=== PATIENT | female | born 1940 | race Caucasian/White ===

== ENCOUNTER 2023-02-26 20:19 | Inpatient (IN) | payer MEDICARE ==
[2023-02-26 22:13] LABS: Basophils # (A) 0.1 k/uL (0-0.2); Basophils % (A) 1 %; Eosinophils # (A) 0.1 k/uL (0-0.7); Eosinophils % (A) 1 %; HCT 47.8 % (34.0-46.0); HGB 15.3 gm/dL (11.4-16.0); Lymphocytes # (A) 1.1 k/uL (1.0-4.8); Lymphocytes % (A) 12 %; MCH 28.5 pg (25.0-35.0); Mean Platelet Volume 8.4; Monocytes # (A) 0.4 k/uL (0-1.0); Monocytes % (A) 4 %; Neutrophils # (A) 7.5 k/uL (1.3-7.7); Neutrophils % (A) 81 %; Platelet Count 208 k/uL (150-450); RBC 5.37 m/uL (3.80-5.40); RDW 13.5 % (11.5-15.5); WBC 9.4 k/uL (3.8-10.6)
[2023-02-26 22:19] LABS: Albumin 4.1 g/dL (3.5-5.0); Calcium 9.4 mg/dL (8.4-10.2); Potassium 4.4 mmol/L (3.5-5.1); Total Bilirubin 0.8 mg/dL (0.2-1.3); Total Protein 7.7 g/dL (6.3-8.2)
[2023-02-26] MEDS ORDERED: SODIUM CHLORIDE 0.9% 500 ML 500 ML IV ONE (22:39)
[2023-02-26 22:57] LABS: INR 2.3 (<1.2); Partial Thromboplastin Time 30.6 sec (22.0-30.0); Prothrombin Time 22.9 sec (9.0-12.0)
--- NOTE | 2023-02-26 23:29 | ED ---
General Adult HPI - General Chief complaint: Dizziness Stated complaint: Dizziness/afib Time Seen by Provider: 02/26/23 22:10 Source: patient, RN notes reviewed, old records reviewed Mode of arrival: ambulatory Limitations: no limitations - History of Present Illness Initial comments: 82-year-old female presenting for evaluation of dizziness and lightheadedness. Patient has had several episodes similar to this in the past and has had significant workup at outside hospitals with no specific diagnosis. Today she had a repeat episode which she describes his dizziness and states that she felt like she might pass out. There is no associated chest pain, no palpitations. No abdominal pain. No focal numbness or weakness. No headache. Symptoms res olved at the time my evaluation. She did have nausea without vomiting. Patient does state she's had increased exertional dyspnea as well as orthopnea. - Related Data Home Medications Medication Instructions Recorded Confirmed Carvedilol [Coreg] 12.5 mg PO BID 08/11/14 08/11/14 Diltiazem Oral [Cardizem] 180 mg PO DAILY 08/11/14 08/11/14 LORazepam [Ativan] 1 mg PO BID 08/11/14 08/11/14 Levothyroxine Sodium [Synthroid] 88 mcg PO DAILY 08/11/14 08/11/14 Warfarin Sodium [Coumadin] 3 mg PO DIRECTED 08/11/14 08/11/14 hydroCHLOROthiazide [Hydrodiuril] 25 mg PO DAILY 08/11/14 08/11/14 Allergies Allergy/AdvReac Type Severity Reaction Status Date / Time No Known Allergies Allergy Verified 08/11/14 00:36 Review of Systems ROS Statement: Those systems with pertinent positive or pertinent negative responses have been documented in the HPI. ROS Other: All systems not noted in ROS Statement are negative. Past Medical History Past Medical History: Atrial Fibrillation, Coronary Artery Disease (CAD), GI Ble ed, Hyperlipidemia, Myocardial Infarction (MT), Thyroid Disorder Additional Past Medical History / Comment(s): 3 cardioversions spread out over 3 years. Last one 2 years ago. Had GI bleed from xaralto before with bloody stools. Stenting of the LAD 3 years ago Last Myocardial Infarction Date:: 2010 History of Any Multi-Drug Resistant Organisms: None Reported Past Surgical History: Heart Catheterization With Stent Additional Past Surgical History / Comment(s): abd tumor removed, nasal bone surgery Additional Past Anesthesia/Blood Transfusion Reaction / Comment(s): Never had a blood transfusion. Date of Last Stent Placement:: 2010 Past Psychological History: No Psychological Hx Reported Smoking Status: Never smoker Past Alcohol Use History: None Reported Past Drug Use History: None Reported - Past Family History Mother Family Medical History: Myocardial Infarction (MT) Father Family Medical History: Cancer Additional Family Medical History / Comment(s): Lung cancer Daughter(s) Family Medical History: Cancer Additional Family Medical History / Comment(s): Kidney General Exam Limitations: no limitations General appearance: alert, in no apparent distress Head exam: Present: atraumatic, normocephalic Eye exam: Present: normal appearance, PERRL ENT exam: Present: normal exam Neck exam: Present: normal inspection. Absent: tenderness, meningismus Respiratory exam: Present: rales. Absent: respiratory distress, wheezes Cardiovascular Exam: Present: regular rate, irregular rhythm GI/Abdominal exam: Present: soft. Absent: distended, tenderness, guarding, rebound Extremities exam: Present: normal inspection, normal capillary refill. Absent: pedal edema Neurological exam: Present: alert, oriented X3, CN II-XII intact. Absent: motor sensory deficit Psychiatric exam: Present: normal affect, normal mood Skin exam: Present: warm, dry, intact. Absent: cyanosis, diaphoretic Course Vital Signs 02/26/23 02/26/23 21:22 22:15 Temperature 97.5 F L Pulse Rate 77 72 Respiratory 18 18 Rate Blood Pressure 178/112 183/123 O2 Sat by Pulse 95 98 Oximetry EKG Findings - EKG Comments: EKG Findings:: EKG: Interpreted by myself, atrial fibrillation, right axis, rate of 84, QRS duration 86, QTC 410, no ST segment elevation Medical Decision Making - Medical Decision Making Was pt. sent in by a medical professional or institution (, PA, INTELLIGENCE ANALYST, urgent care, hospital, or retirement...) When possible be specific @ -No Did you speak to anyone other than the patient for history (EMS, parent, family, police, friend...)? What history was obtained from this source @Patient's daughter Did you review nursing and triage notes (agree or disagree)? Why? @ -I reviewed and agree with nursing and triage notes Were old charts reviewed (outside hosp., previous admission, EMS record, old EKG, old radiological studies, urgent care reports/EKG's, retirement records)? Report findings @ -No old charts were reviewed Differential Diagnosis (chest pain, altered mental status, abdominal pain women, abdominal pain men, vaginal bleeding, weakness, fever, dyspnea, syncope, headache, dizziness, GI bleed, back pain, seizure, CVA, palpatations, mental health, musculoskeletal)? @ Differential Weakness: Hypoglycemia, shock, sepsis, hyponatremia, anemia, infection, MT, ETOH, adverse medicine reaction, overdose, stroke, this is not meant to be an all-inclusive list. EKG interpreted by me (3pts min.). @ -As above X-rays interpreted by me (1pt min.). @Chest x-ray showing pulmonary edema CT interpreted by me (1pt min.). @ -None done U/S interpreted by me (1pt. min.). @ -None done What testing was considered but not performed or refused? (CT, X-rays, U/S, labs)? Why? @ -None What meds were considered but not given or refused? Why? @ -None Did you discuss the management of the patient with other professionals (professionals i.e. , PA, INTELLIGENCE ANALYST, lab, RT, psych nurse, social work lecturer, kettle chipper, te acher, commercial loan officer, case assembler)? Give summary @Patient admitted to [facility] Was smoking cessation discussed for >3mins.? @ -No Was critical care preformed (if so, how long)? @ -No Were there social determinants of health that impacted care today? How? (Homelessness, low income, unemployed, alcoholism, drug addiction, transportation, low edu. Level, literacy, decrease access to med. care, usp, rehab)? @ -No Was there de-escalation of care discussed even if they declined (Discuss DNR or withdrawal of care, Hospice)? DNR status @ -No What co-morbidities impacted this encounter? (DM, HTN, Smoking, COPD, CAD, Cancer, CVA, ARF, Chemo, Hep., AIDS, mental health diagnosis, sleep apnea, morbi d obesity)? @Hypertension Was patient admitted / discharged? Hospital course, mention meds given and route, prescriptions, significant lab abnormalities, going to OR and other pertinent info. @82-year-old female presenting with lightheadedness, and dyspnea. Patient is on Coumadin, INR is therapeutic. She she is in atrial fibrillation with elevated blood pressure. Head CT negative for intracranial hemorrhage or mass effect. Chest x-ray showing CHF which is a new diagnosis for this patient. She does have a mildly elevated BNP, negative troponin. Given IV diuresis and will benefit from echo. She will be admitted to this institution. Echo has been ordered Undiagnosed new problem with uncertain prognosis? @ -No Drug Therapy requiring intensive monitoring for toxicity (Heparin, Nitro, Insulin, Cardizem)? @ -No Were any procedures done? @ -No Diagnosis/symptom? @ -New onset CHF Acute, or Chronic, or Acute on Chronic? @Acute Uncomplicated (without systemic symptoms) or Complicated (systemic symptoms)? @ -Complicated Side effects of treatment? @ -No Exacerbation, Progression, or Severe Exacerbation? @ -No Poses a threat to life or bodily function? How? (Chest pain, USA, MT, pneumonia, PE, COPD, DKA, ARF, appy, cholecystitis, CVA, Diverticulitis, Homicidal, Suicidal, threat to staff... and all critical care pts) @ -Yes, CHF, hypoxia, cardiogenic shock - Lab Data Result diagrams: 02/26/23 21:51 02/26/23 21:51 Lab Results 02/26/23 02/26/23 02/26/23 Range/Units 21:51 21:51 21:51 WBC 9.4 (3.8-10.6) k/uL RBC 5.37 (3.80-5.40) m/uL Hgb 15.3 (11.4-16.0) gm/dL Hct 47.8 H (34.0-46.0) % MCV 89.0 (80.0-100.0) fL MCH 28.5 (25.0-35.0) pg MCHC 32.0 (31.0-37.0) g/dL RDW 13.5 (11.5-15.5) % Plt Count 208 (150-450) k/uL MPV 8.4 Neutrophils % 81 % Lymphocytes % 12 % Monocytes % 4 % Eosinophils % 1 % Basophils % 1 % Neutrophils # 7.5 (1.3-7.7) k/uL Lymphocytes # 1.1 (1.0-4.8) k/uL Monocytes # 0.4 (0-1.0) k/uL Eosinophils # 0.1 (0-0.7) k/uL Basophils # 0.1 (0-0.2) k/uL PT (9.0-12.0) sec INR (<1.2) APTT (22.0-30.0) sec Sodium 135 L (137-145) mmol/L Potassium 4.4 (3.5-5.1) mmol/L Chloride 99 (98-107) mmol/L Carbon Dioxide 27 (22-30) mmol/L Anion Gap 9 mmol/L BUN 15 (7-17) mg/dL Creatinine 0.90 (0.52-1.04) mg/dL Est GFR (CKD-EPI)AfAm 69 (>60 ml/min/1.73 sqM) Est GFR (CKD-EPI)NonAf 60 (>60 ml/min/1.73 sqM) Glucose 126 H (74-99) mg/dL Calcium 9.4 (8.4-10.2) mg/dL Total Bilirubin 0.8 (0.2-1.3) mg/dL AST 25 (14-36) U/L ALT 21 (4-34) U/L Alkaline Phosphatase 64 (38-126) U/L Troponin I <0.012 (0.000-0.034) ng/mL NT-Pro-B Natriuret Pep pg/mL Total Protein 7.7 (6.3-8.2) g/dL Albumin 4.1 (3.5-5.0) g/dL Urine Color Urine Appearance (Clear) Urine pH (5.0-8.0) Ur Specific [place] (1.001-1.035) Urine Protein (Negative) Urine Glucose (UA) (Negative) Urine Ketones (Negative) Urine Blood (Negative) Urine Nitrite (Negative) Urine Bilirubin (Negative) Urine Urobilinogen (<2.0) mg/dL Ur Leukocyte Esterase (Negative) Urine RBC (0-5) /hpf Urine WBC (0-5) /hpf Ur Squamous Epith Cells (0-4) /hpf Urine Bacteria (None) /hpf 02/26/23 02/26/23 02/26/23 Range/Units 21:51 22:36 23:07 WBC (3.8-10.6) k/uL RBC (3.80-5.40) m/uL Hgb (11.4-16.0) gm/dL Hct (34.0-46.0) % MCV (80.0-100.0) fL MCH (25.0-35.0) pg MCHC (31.0-37.0) g/dL RDW (11.5-15.5) % Plt Count (150-450) k/uL MPV Neutrophils % % Lymphocytes % % Monocytes % % Eosinophils % % Basophils % % Neutrophils # (1.3-7.7) k/uL Lymphocytes # (1.0-4.8) k/uL Monocytes # (0-1.0) k/uL Eosinophils # (0-0.7) k/uL Basophils # (0-0.2) k/uL PT 22.9 H (9.0-12.0) sec INR 2.3 H (<1.2) APTT 30.6 H (22.0-30.0) sec Sodium (137-145) mmol/L Potassium (3.5-5.1) mmol/L Chloride (98-107) mmol/L Carbon Dioxide (22-30) mmol/L Anion Gap mmol/L BUN (7-17) mg/dL Creatinine (0.52-1.04) mg/dL Est GFR (CKD-EPI)AfAm (>60 ml/min/1.73 sqM) Est GFR (CKD-EPI)NonAf (>60 ml/min/1.73 sqM) Glucose (74-99) mg/dL Calcium (8.4-10.2) mg/dL Total Bilirubin (0.2-1.3) mg/dL AST (14-36) U/L ALT (4-34) U/L Alkaline Phosphatase (38-126) U/L Troponin I (0.000-0.034) ng/mL NT-Pro-B Natriuret Pep 1380 pg/mL Total Protein (6.3-8.2) g/dL Albumin (3.5-5.0) g/dL Urine Color Colorless Urine Appearance Clear (Clear) Urine pH 7.0 (5.0-8.0) Ur Specific [place] 1.002 (1.001-1.035) Urine Protein Negative (Negative) Urine Glucose (UA) Negative (Negative) Urine Ketones Negative (Negative) Urine Blood Trace H (Negative) Urine Nitrite Negative (Negative) Urine Bilirubin Negative (Negative) Urine Urobilinogen <2.0 (<2.0) mg/dL Ur Leukocyte Esterase Small H (Negative) Urine RBC <1 (0-5) /hpf Urine WBC 9 H (0-5) /hpf Ur Squamous Epith Cells <1 (0-4) /hpf Urine Bacteria Rare H (None) /hpf Disposition Clinical Impression: HTN (hypertension), CHF (congestive heart failure) Disposition: ADMITTED IP TO THIS HOSP Condition: Stable Is patient prescribed a controlled substance at d/c from ED?: No Referrals: Manisha Low MD [Primary Care Provider] - 1-2 days Time of Disposition: 01:31
--- NOTE | 2023-02-26 23:41 | XR ---
EXAMINATION TYPE: XR chest 2V DATE OF EXAM: 02/26/2023 COMPARISON: 08/11/2014 INDICATION: Dizziness TECHNIQUE: Frontal and lateral views of the chest are obtained. FINDINGS: The heart size is enlarged. The pulmonary vasculature is prominent. Diffuse increased lung markings are present. Correlate for mild pulmonary edema and volume overload. IMPRESSION: 1. Clinical consideration for congestive heart failure.
--- NOTE | 2023-02-26 23:41 | CT ---
EXAMINATION TYPE: CT brain wo con DATE OF EXAM: 02/26/2023 COMPARISON: None INDICATION: Dizziness, Afib DLP: 1172.9 mGycm, Automated exposure control for dose reduction was used. CONTRAST: None CT of the brain is performed utilizing 3 mm thick sections through the posterior fossa and 3 mm thick sections through the remaining calvarium. Study is performed within 24 hours of arrival to the hosp ital. No abnormal hyperdensity is present to suggest an acute intracranial hemorrhage. No mass lesion is evident. No acute infarcts are evident. Ventricles and sulci are prominent for the patient age. Paranasal sinuses and mastoid air cells within the [id number] are clear. IMPRESSIONS: 1. Age-related atrophy. 2. No acute intracranial process. Follow-up MRI can be performed as clinically indicated.
[2023-02-27 00:13] LABS: Appearance,Urine Clear (Clear); Bacteria,Urine Rare /hpf; Bilirubin,Urine Negative (Negative); Blood,Urine Trace (Negative); Color,Urine Colorless; Glucose,Urine (UA) Negative (Negative); Ketones,Urine Negative (Negative); Leukocyte Esterase,Urine Small (Negative); Nitrite,Urine Negative (Negative); Protein,Urine Negative (Negative); RBC,Urine <1 /hpf (0-5); Specific Gravity,Urine 1.002 (1.001-1.035); Squamous Epithelial Cell,Urine <1 /hpf (0-4); Urobilinogen,Urine <2.0 mg/dL (<2.0); WBC,Urine 9 /hpf (0-5)
[2023-02-27] MEDS ORDERED: FUROSEMIDE 10 MG/ML 4 ML VIAL IV STA (01:10)
[2023-02-27] MEDS ORDERED: NALOXONE 0.4 MG/ML 1 ML VIAL IV PRN (01:32)
[2023-02-27] MEDS ORDERED: ACETAMINOPHEN TAB 325 MG TAB PO PRN (01:32)
--- NOTE | 2023-02-27 04:06 | P.HPIM ---
History of Present Illness H&P Date: 02/27/23 The patient is an 82-year-old female with a PMH of A. fib on Coumadin, CAD status post stent, hyperlipidemia, and hypothyroidism who presents for dizziness and lightheadedness. The patient reports that she was at home when she developed lightheadedness while watching television at around 4 PM. The symptoms lasted for about 45 minutes, with no associated symptoms and then resolved spontaneously. She reported some nausea without vomiting. The patient denied experiencing chest discomfort, shortness of breath, or diaphoresis diaphoresis. She also denied experiencing focal weakness, numbness, or headache. She does report decreased exercise tolerance over the past few weeks with some lower extremity edema. She reports that she has had multiple episodes like this in the past where she was evaluated at different facility where the workup was unremarkable. In the emergency room, CT brain was unremarkable. Chest x-ray revealed pulmonary edema. EKG revealed A. fib with right axis deviation at 84 beats per minute. Laboratory evaluation was remarkable for INR 2.3, sodium 135, glucose 126, troponin less than 0.4, proBNP 1380, and unremarkable UA. ED documentation reviewed and case discussed with ED provider. Review of systems: Pertinent positives and negatives as discussed in HPI, a complete review of systems was performed and all other systems are negative. Physical examination: Vital signs reviewed General: non toxic, no distress, appears at stated age, normal weight Derm: no unusual rashes/lesions, warm Head: atraumatic, normocephalic, symmetric Eyes: EOMI, no lid lag, anicteric sclera, pupils equal round reactive to light ENT: Nose and ears atraumatic Neck: No cervical lymphadenopathy, trachea midline, supple Mouth: no lip lesion, mucus membranes moist Cardiovascular: S1S2 reg, no murmur, positive dorsalis pedis pulse bilateral, 1+ bilateral lower extremity pitting edema Lungs: CTA bilateral, no rhonchi, no rales, no accessory muscle use Abdominal: soft, nontender to palpation, no guarding Ext: muscle strength 5 out of 5 in all 4 extremities grossly, no gross muscle atrophy, no contractures, Neuro: CN II-XI grossly intact, no gross focal neuro deficits Psych: Alert, oriented, appropriate affect Assessment: Fluid overload, suspect new onset CHF Lightheadedness, unclear etiology Chronic conditions: CAD, Afib, HTN, HLD Imaging: In the emergency room, CT brain was unremarkable. Chest x-ray revealed pulmonary edema. EKG revealed A. fib with right axis deviation at 84 beats per minute Data Review: Laboratory evaluation was remarkable for INR 2.3, sodium 135, glucose 126, troponin less than 0.4, proBNP 1380, and unremarkable UA Plan: Continue Lasix 40 mg IV every 12 hours Cardiac monitoring Cardiology consult Echocardiogram Intake and output, daily weight Fall precautions DVT prophylaxis: Coumadin The patient is admitted with an anticipated greater than 2 midnight stay for evaluation of CHF CODE STATUS: Full Code Discussed with: Patient Anticipated discharge place: Home Past Medical History Past Medical History: Atrial Fibrillation, Coronary Artery Disease (CAD), GI Bleed, Hyperlipidemia, Myocardial Infarction ([place]), Thyroid Disorder Additional Past Medical History / Comment(s): 3 cardioversions spread out over 3 years. Last one 2 years ago. Had GI bleed from xaralto before with bloody stools. Stenting of the LAD 3 years ago Last Myocardial Infarction Date:: 2010 History of Any Multi-Drug Resistant Organisms: None Reported Past Surgical History: Heart Catheterization With Stent Additional Past Surgical History / Comment(s): abd tumor removed, nasal bone surgery Additional Past Anesthesia/Blood Transfusion Reaction / Comment(s): Never had a blood transfusion. Date of Last Stent Placement:: 2010 Past Psychological History: No Psychological Hx Reported Smoking Status: Never smoker Past Alcohol Use History: None Reported Past Drug Use History: None Reported - Past Family History Mother Family Medical History: Myocardial Infarction (ME) Father Family Medical History: Cancer Additional Family Medical History / Comment(s): Lung cancer Daughter(s) Family Medical History: Cancer Additional Family Medical History / Comment(s): Kidney Medications and Allergies Home Medications Medication Instructions Recorded Confirmed Type Carvedilol [Coreg] 12.5 mg PO BID 08/11/14 08/11/14 History Diltiazem Oral [Cardizem] 180 mg PO DAILY 08/11/14 08/11/14 History LORazepam [Ativan] 1 mg PO BID 08/11/14 08/11/14 History Levothyroxine Sodium [Synthroid] 88 mcg PO DAILY 08/11/14 08/11/14 History Warfarin Sodium [Coumadin] 3 mg PO DIRECTED 08/11/14 08/11/14 History hydroCHLOROthiazide [Hydrodiuril] 25 mg PO DAILY 08/11/14 08/11/14 History Allergies Allergy/AdvReac Type Severity Reaction Status Date / Time No Known Allergies Allergy Verified 08/11/14 00:36 Physical Exam Vitals: Vital Signs Temp Pulse Resp BP Pulse Ox 02/27/23 02:36 85 16 161/92 97 02/26/23 22:15 72 18 183/123 98 02/26/23 21:22 97.5 F L 77 18 178/112 95 Intake and Output 02/26/23 02/26/23 02/27/23 14:59 22:59 06:59 Other: Weight 90.718 kg Results CBC & Chem 7: 02/26/23 21:51 02/26/23 21:51 Labs: Abnormal Lab Results - Last 24 Hours (Table) 02/26/23 02/26/23 02/26/23 Range/Units 21:51 21:51 22:36 Hct 47.8 H (34.0-46.0) % PT 22.9 H (9.0-12.0) sec INR 2.3 H (<1.2) APTT 30.6 H (22.0-30.0) sec Sodium 135 L (137-145) mmol/L Glucose 126 H (74-99) mg/dL Urine Blood (Negative) Ur Leukocyte Esterase (Negative) Urine WBC (0-5) /hpf Urine Bacteria (None) /hpf 02/26/23 Range/Units 23:07 Hct (34.0-46.0) % PT (9.0-12.0) sec INR (<1.2) APTT (22.0-30.0) sec Sodium (137-145) mmol/L Glucose (74-99) mg/dL Urine Blood Trace H (Negative) Ur Leukocyte Esterase Small H (Negative) Urine WBC 9 H (0-5) /hpf Urine Bacteria Rare H (None) /hpf
[2023-02-27] MEDS ORDERED: LORazepam 1 MG TAB PO PRN (08:01)
[2023-02-27] MEDS: METOPROLOL TARTRATE 50 MG TAB PO SCH ×2 (08:55→20:16)
[2023-02-27] MEDS: FUROSEMIDE 10 MG/ML 4 ML VIAL IV SCH ×2 (08:56→20:16)
[2023-02-27] MEDS ORDERED: DILTIAZEM CD 120 MG CAP.ER.24H PO SCH (09:00)
[2023-02-27] MEDS ORDERED: DILTIAZEM CD 120 MG CAP.ER.24H PO STA (11:17)
--- NOTE | 2023-02-27 11:19 | P.CRDCN ---
History of Present Illness Consult date: 02/27/23 Consult reason: congestive heart failure History of present illness: History of present illness: This is an 82-year-old female patient follows with a sonar subsystem equipment operator at [place] and in [place]. She has a past medical history of permanent atrial fibrillation on Coumadin, coronary artery disease with previous stenting in the LAD 2 and RCA, hypertension, hypothyroidism, remote history of tobacco use and quit 30 years ago. Patient states that she has had dizziness off and on for a couple weeks she did have her self checked by her sonar subsystem equipment operator in [place] and thought it was related to her atrial fibrillation. Her initial blood pressure was 17 8/112 She was seen by her PCP day before yesterday and was told that she gained 7 pounds and her pulse ox was adequate in the office. She was prescribed an albuterol inhaler and was sent home. She denies having any cough, fever or chills no sputum production. Yesterday, patient had an episode of significant dizziness and felt like she was going to pass out and she decided to come in the hospital for further evaluation. Patient is seen today in the emergency center waiting for a bed on the cardiac stepdown unit. She has been provided 500 mL of IV fluid and Lasix 40 mg once EKG atrial fibrillation at rate of 84 Chest x-ray: CHF CAT scan of the brain reveals age related atrophy. No acute intracranial process. CBC is unremarkable. INR 2.3. Sodium 135, potassium 4.4, BUN 15 creatinine 0.9. Blood sugar 126. Troponin negative 1. ProBNP 1380. Home cardiac medications: Cardizem CD 120 mg daily, levothyroxine 88 g daily, Lopressor 100 mg twice daily, Coumadin 1.5 mg on Friday and Friday and 3 mg on the other days. May 2012 patient had 2 Xience stents in the LAD performed at [facility] 2014 patient had a resolute stent placed in the RCA at [facility] in [place]. Review Of Systems: At the time of my evaluation: Constitutional: No fever, no chills. Reports weakness, fatigue or lethargy. EENT: No headache. No dizziness. Lungs: Reports shortness of breath, cough, no sputum production. No wheezing. Cardiovascular: No chest pain, reports lower extremity edema. No palpitations. No paroxysmal nocturnal dyspnea. Reports orthopnea. Reports lightheadedness or dizziness. Reports one near syncopal episode. Abdominal: No abdominal pain. No nausea, vomiting. No diarrhea. No constipation. No bloody or tarry stools. Genitourinary: No dysuria.. No urinary retention. Musculoskeletal: No myalgias. No muscle weakness, no frequent falls. No back pain. No neck pain. Integumentary: No wounds. No rash. No unusual bruising. Neurologic: No aphasia. No facial droop. No change in mentation. No head injury. No headache. Physical examination: Gen: This is an 82-year-old female. She is resting on ER stretcher and appears to be in no acute distress. No respiratory distress noted. VS: reviewed HEENT: Head is atraumatic, normocephalic. Pupils equal, round. Sclerae is anicteric. NECK: Supple. No JVD. . LUNGS: Diminished with a few crackles in the bases. No intercostal retractions. HEART: Irregular rate and rhythm. ABDOMEN: Soft No tenderness. EXTREMITIES: 1+ pedal edema to the left, trace edema on the right lower extremity. NEUROLOGICAL: Patient is awake, alert and oriented x3. Assessment: Acute heart failure, most likely systolic Dizziness with near syncopal episode Emergent hypertension History of coronary artery disease Rate controlled Permanent atrial fibrillation Hypertension Hypothyroidism Remote history of tobacco use and dependence Plan: Continue patient on Lasix 40 mg IV every 12 hours Monitor I&O, daily weights electrolytes and renal function Continue patient's home cardiac medications Pharmacy to dose Coumadin Continue telemetry Start patient on losartan 25 mg daily. Orthostatic vital signs Obtain 2-D echocardiogram and Doppler study to assess cardiac structure and function Further recommendations to follow based upon clinical course Thank you kindly for this consultation. Nurse practitioner note has been reviewed, I agree with documented findings and plan of care. Patient was seen and examined. Past Medical History Past Medical History: Atrial Fibrillation, Coronary Artery Disease (CAD), GI Bleed, Hyperlipidemia, Myocardial Infarction (HI), Thyroid Disorder Additional Past Medical History / Comment(s): 3 cardioversions spread out over 3 years. Last one 2 years ago. Had GI bleed from xaralto before with bloody sto ols. Stenting of the LAD 3 years ago Last Myocardial Infarction Date:: 2010 History of Any Multi-Drug Resistant Organisms: None Reported Past Surgical History: Heart Catheterization With Stent Additional Past Surgical History / Comment(s): abd tumor removed, nasal bone surgery Additional Past Anesthesia/Blood Transfusion Reaction / Comment(s): Never had a blood transfusion. Date of Last Stent Placement:: 2010 Past Psychological History: No Psychological Hx Reported Smoking Status: Never smoker Past Alcohol Use History: None Reported Past Drug Use History: None Reported - Past Family History Mother Family Medical History: Myocardial Infarction (HI) Father Family Medical History: Cancer Additional Family Medical History / Comment(s): Lung cancer Daughter(s) Family Medical History: Cancer Additional Family Medical History / Comment(s): Kidney Medications and Allergies Home Medications Medication Instructions Recorded Confirmed Type LORazepam [Ativan] 1 mg PO DAILY PRN 08/11/14 02/27/23 History Levothyroxine Sodium [Synthroid] 88 mcg PO DAILY@0600 08/11/14 02/27/23 History Warfarin Sodium [Coumadin] 3 mg PO SUMOWETHSA@0 08/11/14 02/27/23 History Metoprolol Tartrate [Lopressor] 100 mg PO BID 02/27/23 02/27/23 History Warfarin [Coumadin] 1.5 mg PO TUFR@0 02/27/23 02/27/23 History dilTIAZem HCL [dilTIAZem HCL 24Hr 120 mg PO DAILY 02/27/23 02/27/23 History ER (CD)] Allergies Allergy/AdvReac Type Severity Reaction Status Date / Time No Known Allergies Allergy Verified 02/27/23 07:14 Physical Exam Vitals: Vital Signs Temp Pulse Resp BP Pulse Ox 02/27/23 06:27 64 183 H 183/101 98 02/27/23 02:36 85 16 161/92 97 02/26/23 22:15 72 18 183/123 98 02/26/23 21:22 97.5 F L 77 18 178/112 95 Intake and Output 02/26/23 02/27/23 02/27/23 22:59 06:59 14:59 Other: Weight 90.718 kg Results 02/26/23 21:51 02/26/23 21:51 Cardiac Enzymes 02/26/23 02/26/23 Range/Units 21:51 21:51 AST 25 (14-36) U/L Troponin I <0.012 (0.000-0.034) ng/mL Coagulation 02/26/23 Range/Units 22:36 PT 22.9 H (9.0-12.0) sec APTT 30.6 H (22.0-30.0) sec CBC 02/26/23 Range/Units 21:51 WBC 9.4 (3.8-10.6) k/uL RBC 5.37 (3.80-5.40) m/uL Hgb 15.3 (11.4-16.0) gm/dL Hct 47.8 H (34.0-46.0) % Plt Count 208 (150-450) k/uL Comprehensive Metabolic Panel 02/26/23 Range/Units 21:51 Sodium 135 L (137-145) mmol/L Potassium 4.4 (3.5-5.1) mmol/L Chloride 99 (98-107) mmol/L Carbon Dioxide 27 (22-30) mmol/L BUN 15 (7-17) mg/dL Creatinine 0.90 (0.52-1.04) mg/dL Glucose 126 H (74-99) mg/dL Calcium 9.4 (8.4-10.2) mg/dL AST 25 (14-36) U/L ALT 21 (4-34) U/L Alkaline Phosphatase 64 (38-126) U/L Total Protein 7.7 (6.3-8.2) g/dL Albumin 4.1 (3.5-5.0) g/dL Current Medications Generic Name Dose Route Start Last Admin Trade Name Freq PRN Reason Stop Dose Admin Acetaminophen 650 mg 02/27/23 01:32 Acetaminophen Tab 325 Mg Tab PO Q6HR PRN Mild Pain or Fever > 100.5 Furosemide 40 mg 02/27/23 09:00 Furosemide 10 Mg/Ml 4 Ml Vial IV Q12HR LUIS Naloxone HCl 0.2 mg 02/27/23 01:32 Naloxone 0.4 Mg/Ml 1 Ml Vial IV Q2M PRN Opioid Reversal Intake and Output 02/26/23 02/27/23 02/27/23 22:59 06:59 14:59 Other: Weight 90.718 kg 02/26/23 21:51 02/26/23 21:51
[2023-02-27 11:26] LABS: INR 2.4 (<1.2); Prothrombin Time 23.1 sec (9.0-12.0)
[2023-02-27] MEDS: LOSARTAN 25 MG TAB PO SCH (12:07)
[2023-02-27] MEDS ORDERED: DILTIAZEM ORAL 60 MG TAB PO STA (13:31)
[2023-02-27 16:56] LABS: Glucose,Whole Blood 104 mg/dL (70-110)
--- NOTE | 2023-02-27 18:47 | CA ---
Transthoracic Echo Report Name: Natalia Morrell Age: 82 Gender: F : 1940 Exam Date: 02/27/2023 10:06 Exam Location: [place] [facility] Ht (in): 64 Wt (lb): 200 Ordering Physician: Jeremías Chairez MD Attending/Referring Phys: [id number], Mihaela [employer] Systems Programmer Jim Ferris Procedure CPT: Indications: chf Cardiac Hx: Technical Quality: Fair Contrast 1: Total Dose (mL): Contrast 2: Total Dose (mL): MEASUREMENTS (Male / Female) Normal Values 2D ECHO LV Diastolic Diameter PLAX 5.1 cm 4.2 - 5.9 / 3.9 - 5.3 cm LV Systolic Diameter PLAX 3.9 cm IVS Diastolic Thickness 1.3 cm 0.6 - 1.0 / 0.6 - 0.9 cm LVPW Diastolic Thickness 1.4 cm 0.6 - 1.0 / 0.6 - 0.9 cm LV Relative Wall Thickness 0.5 RV Internal Dim ED PLAX 2.9 cm LVOT Diameter 1.9 cm Aortic Root Diameter 3.3 cm LA Systolic Diameter LX 3.2 cm 3.0 - 4.0 / 2.7 - 3.8 cm LV Diastolic Volume MOD BP 41.1 cm??? 67 - 155 / 56 - 104 cm??? LV Systolic Volume MOD BP 13.9 cm??? 22 - 58 / 19 - 49 cm??? LV Ejection Fraction MOD BP 66.1 % >= 55 % LV Diastolic Volume MOD 4C 49.1 cm??? LV Systolic Volume MOD 4C 15.7 cm??? LV Ejection Fraction MOD 4C 68.1 % LV Diastolic Length 4C 6.2 cm LV Systolic Length 4C 5.9 cm LV Diastolic Volume MOD 2C 33.8 cm??? LV Systolic Volume MOD 2C 11.7 cm??? LV Ejection Fraction MOD 2C 65.4 % LV Diastolic Length 2C 6.0 cm LV Systolic Length 2C 5.5 cm LA Volume 103.5 cm??? 18 - 58 / 22 - 52 cm??? Ascending Aorta Diameter 3.1 cm DOPPLER AV Peak Velocity 81.5 cm/s AV Peak Gradient 2.7 mmHg MV Peak Velocity 123.4 cm/s MV Peak Gradient 6.1 mmHg MV Mean Velocity 52.9 cm/s MV Mean Gradient 1.6 mmHg MV Velocity Time Integral 25.4 cm Mitral E Point Velocity 105.2 cm/s Mitral A Point Velocity 30.5 cm/s Mitral E to A Ratio 3.4 MV Deceleration Time 151.5 ms TR Peak Velocity 241.4 cm/s TR Peak Gradient 23.3 mmHg Right Ventricular Systolic Press 28.5 mmHg PV Peak Velocity 81.8 cm/s PV Peak Gradient 2.7 mmHg FINDINGS Left Ventricle Left ventricular ejection fraction is estimated at 50-55 %. Right Ventricle Normal right ventricular size. Right Atrium RA appears mild to moderately enlarged. Left Atrium Left atrial dilatation. LA Volume Index= 53ml/m2 Mitral Valve Structurally normal mitral valve. Aortic Valve Aortic valve not well visualized. No aortic regurgitation. Tricuspid Valve Structurally normal tricuspid valve. Mild TR. RVSP=33mmhg Pulmonic Valve Pulmonic valve not well visualized. No pulmonic regurgitation. Pericardium Normal pericardium. Aorta Normal size aortic root and proximal ascending aorta. CONCLUSIONS Normal LV size and systolic function Biatrial enlargement Previewed by: Dr. Nato Kuo MD (Electronically Signed) Final Date: 27 Feb 2023 18:46
[2023-02-27] MEDS ORDERED: WARFARIN 3 MG TAB PO SCH (19:00)
[2023-02-28] MEDS ORDERED: LEVOTHYROXINE 88 MCG TAB PO SCH (06:00)
[2023-02-28] MEDS: FUROSEMIDE 10 MG/ML 4 ML VIAL IV SCH (08:16)
[2023-02-28] MEDS: LOSARTAN 25 MG TAB PO SCH (08:16)
[2023-02-28] MEDS: METOPROLOL TARTRATE 50 MG TAB PO SCH (08:16)
[2023-02-28 08:36] LABS: INR 2.5 (<1.2); Prothrombin Time 24.5 sec (9.0-12.0)
[2023-02-28 08:51] LABS: Calcium 9.3 mg/dL (8.4-10.2)
[2023-02-28] MEDS ORDERED: DILTIAZEM CD 180 MG CAP.ER.24H PO SCH (09:00)
--- NOTE | 2023-02-28 09:31 | P.PN ---
Subjective Progress Note Date: 02/28/23 History of present illness: This is an 82-year-old female patient follows with a hospital admissions officer at [place] and in [place]. She has a past medical history of permanent atrial fibrillation on Coumadin, coronary artery disease with previous stenting in the LAD 2 and RCA, hypertension, hypothyroidism, remote history of tobacco use and quit 30 years ago. Patient states that she has had dizziness off and on for a couple weeks she did have her self checked by her hospital admissions officer in [place] and thought it was related to her atrial fibrillation. Her initial blood pressure was 178/112 She was seen by her PCP day before yesterday and was told that she gained 7 pounds and her pulse ox was adequate in the office. She was prescribed an albuterol inhaler and was sent home. She denies having any cough, fever or chills no sputum production. Yesterday, patient had an episode of significant dizziness and felt like she was going to pass out and she decided to come in the hospital for further evaluation. Patient is seen today in the emergency center waiting for a bed on the cardiac stepdown unit. She has been provided 500 mL of IV fluid and Lasix 40 mg once EKG atrial fibrillation at rate of 84 Chest x-ray: CHF CAT scan of the brain reveals age related atrophy. No acute intracranial process. CBC is unremarkable. INR 2.3. Sodium 135, potassium 4.4, BUN 15 creatinine 0.9. Blood sugar 126. Troponin negative 1. ProBNP 1380. Home cardiac medications: Cardizem CD 120 mg daily, levothyroxine 88 g daily, Lopressor 100 mg twice daily, Coumadin 1.5 mg on Friday and Friday and 3 mg on the other days. May 2012 patient had 2 Xience stents in the LAD performed at [facility] 2014 patient had a resolute stent placed in the RCA at [facility] in [place]. 02/28 Patient is seen today on the cardiac stepdown unit. Patient is sitting in a recliner and appears to be very comfortable. She states her breathing is doing very well today. She denies orthopnea. She did have a short episode of shortness of breath during the night. She is currently on IV Lasix 40 mg every 12 hours which will switch to oral. Blood pressure 139/88, heart rate in the 70s and 80s. Echocardiogram reveals normal LV size and systolic function. Biatrial enlargement. Results reviewed with the patient. Physical examination: Gen: This is an 82-year-old female. She is resting in recliner and appears to be in no acute distress. No respiratory distress noted. VS: reviewed HEENT: Head is atraumatic, normocephalic. Pupils equal, round. Sclerae is anicteric. NECK: Supple. No JVD. . LUNGS: Clear to auscultation. No intercostal retractions. HEART: Irregular rate and rhythm. ABDOMEN: Soft No tenderness. EXTREMITIES: No lower extremity edema. NEUROLOGICAL: Patient is awake, alert and oriented x3. Assessment: Acute diastolic heart failure Dizziness with near syncopal episode Emergent hypertension History of coronary artery disease Rate controlled Permanent atrial fibrillation Hypertension Hypothyroidism Remote history of tobacco use and dependence Plan: Transition IV Lasix to oral Monitor I&O, daily weights electrolytes and renal function Continue patient's home cardiac medications Pharmacy to dose Coumadin Continue current cardiac medications Patient is cleared from cardiology for discharge and may follow up with her hospital admissions officer at [place] in one to 2 weeks. Cardiology will follow on an as- needed basis. Nurse practitioner note has been reviewed, I agree with documented findings and plan of care. Patient was seen and examined. Objective - Vital Signs Vital signs: Vital Signs Temp 98.1 F 02/28/23 04:00 Pulse 81 02/28/23 04:00 Resp 18 02/28/23 04:00 BP 119/85 02/28/23 04:00 Pulse Ox 96 02/28/23 04:00 FiO2 Intake & Output 02/27/23 02/28/23 02/28/23 18:59 06:59 18:59 Intake Total 480 Output Total 900 Balance -420 Weight 90.718 kg 94.7 kg Intake: Oral 480 Output: Urine 900 Other: Voiding Method Toilet # Voids 2 - Labs CBC & Chem 7: 02/26/23 21:51 02/28/23 07:38 Labs: Abnormal Lab Results - Last 24 Hours (Table) 02/27/23 Range/Units 10:58 PT 23.1 H (9.0-12.0) sec INR 2.4 H (<1.2)
[2023-02-28 14:49] VITALS: BP 126/75; PULSE 70; RESP 17; TEMP 98
--- NOTE | 2023-02-28 15:06 | P.DS ---
Providers Date of admission: 02/27/23 01:32 Expected date of discharge: 02/28/23 Attending physician: Msefin Lorenzo MD Consults: 02/27/23 01:32 Consult Physician Routine Consulting Provider: Jorje Cheatham Consult Reason/Comments: chf Do you want consulting provider notified?: Yes Primary care physician: Manisha Lenz [facility] Course: The patient is an 82-year-old female with a PMH of A. fib on Coumadin, CAD status post stent, hyperlipidemia, and hypothyroidism who presents for dizziness and lightheadedness. The patient reports that she was at home when she developed lightheadedness while watching television at around 4 PM. The symptoms lasted for about 45 minutes, with no associated symptoms and then resolved spontaneously. She reported some nausea without vomiting. The patient denied experiencing chest discomfort, shortness of breath, or diaphoresis diaphoresis. She also denied experiencing focal weakness, numbness, or headache. She does report decreased exercise tolerance over the past few weeks with some lower extremity edema. She reports that she has had multiple episodes like this in the past where she was evaluated at different facility where the workup was unremarkable. In the emergency room, CT brain was unremarkable. Chest x-ray revealed pulmonary edema. EKG revealed A. fib with right axis deviation at 84 beats per minute. Laboratory evaluation was remarkable for INR 2.3, sodium 135, glucose 126, troponin less than 0.4, proBNP 1380, and unremarkable UA. ED documentation reviewed and case discussed with ED provider. Patient was diuresed with Lasix 40 mg IV BID. Echocardiogram was obtained which showed normal LV size and systolic function. Cardiology was consulted and followed the patient during his hospitalization. 02/28 Patient was seen and examined. No acute events overnight. Patient reports significant improvement in her breathing. She denies any chest pain, SOB or palpiations. She has had no dizziness during this hospitalization. She is advised to follow up with her Volunteer Services Manager at [facility] within 1 week of discharge. She will be discharged home on Cardizem 180 mg PO QD which is an increased dose. Started on Losartan 25 mg PO QD and Lasix 40 mg PO QD. Pertinent studies include brain CT, chest x-ray, echocardiogram. Vital signs reviewed General: non toxic, no distress, appears at stated age, normal weight Derm: no unusual rashes/lesions, warm Head: atraumatic, normocephalic, symmetric Eyes: EOMI, no lid lag, anicteric sclera ENT: Nose and ears atraumatic Neck: No cervical lymphadenopathy, trachea midline, supple Cardiovascular: S1S2 reg, no murmur, 1+ bilateral lower extremity pitting edema Lungs: CTA bilateral, no rhonchi, no rales, no accessory muscle use Ext: muscle strength 5 out of 5 in all 4 extremities grossly, no gross muscle atrophy, no contractures, Neuro: no gross focal neuro deficits Psych: Alert, oriented, appropriate affect Discharge diagnosis: Fluid overload, suspect new onset CHF Lightheadedness, unclear etiology Chronic conditions: CAD, Afib, HTN, HLD This complex discharge took 35 minutes to complete. Patient Condition at Discharge: Stable Plan - Discharge Summary Discharge Rx Participant: No New Discharge Prescriptions: New Losartan [Cozaar] 25 mg PO DAILY #30 tab Furosemide [Lasix] 40 mg PO DAILY #30 tab Diltiazem Cd [Cardizem CD] 180 mg PO DAILY #30 cap Continue LORazepam [Ativan] 1 mg PO DAILY PRN PRN Reason: Anxiety Warfarin Sodium [Coumadin] 3 mg PO SUMOWETHSA@1900 Levothyroxine Sodium [Synthroid] 88 mcg PO DAILY@0600 Metoprolol Tartrate [Lopressor] 100 mg PO BID Warfarin [Coumadin] 1.5 mg PO TUFR@1900 Discontinued dilTIAZem HCL [dilTIAZem HCL 24Hr ER (CD)] 120 mg PO DAILY Discharge Medication List LORazepam [Ativan] 1 mg PO DAILY PRN 08/11/14 [History] Levothyroxine Sodium [Synthroid] 88 mcg PO DAILY@0600 08/11/14 [History] Warfarin Sodium [Coumadin] 3 mg PO SUMOWETHSA@1900 08/11/14 [History] Metoprolol Tartrate [Lopressor] 100 mg PO BID 02/27/23 [History] Warfarin [Coumadin] 1.5 mg PO TUFR@1900 02/27/23 [History] Diltiazem Cd [Cardizem CD] 180 mg PO DAILY #30 cap 02/28/23 [Rx] Furosemide [Lasix] 40 mg PO DAILY #30 tab 02/28/23 [Rx] Losartan [Cozaar] 25 mg PO DAILY #30 tab 02/28/23 [Rx] Follow up Appointment(s)/Referral(s): Jorje Cheatham MD [STAFF PHYSICIAN] - 03/12/23 3:45 pm Manisha Low MD [Primary Care Provider] - 1-2 days (please call to schedule appt, tell them you were discharged 02/28/23 for chf. ) Patient Instructions/Handouts: Heart Failure (DC), A-fib (Atrial Fibrillation) (DC) Discharge/Stand Alone Forms: Area PCPs Discharge Disposition: HOME SELF-CARE
[2023-02-28] MEDS ORDERED: WARFARIN 1.5 MG TAB PO SCH ×3 (18:00→19:00)
[2023-03-01] MEDS ORDERED: FUROSEMIDE 40 MG TAB PO SCH (09:00)
[2023-03-01] MEDS ORDERED: WARFARIN 3 MG TAB PO SCH (18:00)
== END 2023-02-28 14:55 | disposition home or self-care (01) | DRG 291 ==
LOC: EC 20:19 → 3SCARD 02-27 01:32
PROVIDERS: ADMIT Internal Medicine; ATTEND Internal Medicine
DX: I11.0 Hypertensive heart disease with heart failure (principal); I50.31 Acute diastolic (congestive) heart failure; I16.1 Hypertensive emergency; I48.21 Permanent atrial fibrillation; E03.9 Hypothyroidism, unspecified; E78.5 Hyperlipidemia, unspecified; I25.10 Atherosclerotic heart disease of native coronary artery without angina pectoris; Z79.01 Long term (current) use of anticoagulants; Z95.5 Presence of coronary angioplasty implant and graft; Z87.19 Personal history of other diseases of the digestive system; I25.2 Old myocardial infarction; Z79.899 Other long term (current) drug therapy; Z79.890 Hormone replacement therapy; Z28.310 Unvaccinated for COVID-19; Z87.891 Personal history of nicotine dependence; Z82.49 Family history of ischemic heart disease and other diseases of the circulatory system
CPT/HCPCS: 36415; 70450; 71046; 80048; 80053; 81001; 83880; 84484; 85025; 85610; 85730; 93005; 93306; 96361; 96374; 96376; 99285